=== PATIENT | female | born 1965 | race Caucasian/White ===

== ENCOUNTER → 2020-02-11 | Outpatient (CLI) | payer MEDICARE, MEDICAID ==
--- NOTE | 2020-02-11 16:22 | RADIOLOGY REPORT (SQ) ---
EXAM DESCRIPTION: CAROTID DOPPLER IMAGES COMPLETED DATE/TIME: 02/11/2020 4:00 pm REASON FOR STUDY: CAROTID STENOSIS I65.22 OCCLUSION AND STENOSIS OF LEFT CAROTID ARTERY COMPARISON: None. TECHNIQUE: Grayscale ultrasound, Doppler velocity and spectra, and color Doppler images acquired of the extra-cranial carotid and vertebral arteries. Images stored on PACS. LIMITATIONS: None. FINDINGS: RIGHT CAROTID CCA Velocities: Within normal limits. ICA Velocities Peak systolic 50 cm/s. End diastolic 21 cm/s. Proximal ICA/CCA peak systolic ratio 0.51. Spectra normal. No significant plaque, minimal intimal thickening. LEFT CAROTID CCA Velocities: Within normal limits. ICA Velocities Peak systolic 44 cm/s. End diastolic 13 cm/s. Proximal ICA/CCA peak systolic ratio 0.4. Spectra normal. No significant plaque, minimal intimal thickening. VERTEBRAL ARTERIES: Antegrade flow. Normal waveforms. SUBCLAVIAN ARTERIES: No finding. OTHER: No other significant finding. IMPRESSION: NO HEMODYNAMICALLY SIGNIFICANT STENOSIS. COMMENT: Quality ID #[id number]: Velocity criteria are extrapolated from the diameter data as defined by t he Society of Radiologists in Ultrasound Consensus Conference. Radiology 2003: 229; 340-346. TECHNICAL DOCUMENTATION: JOB ID: [id number] 2010 [employer]- All Rights Reserved Reading location - IP/workstation name: [email or web address]
== END ==
LOC: SP 07:54 → EDBD 08:00
PROVIDERS: ATTEND Specialist
DX: I65.22 Occlusion and stenosis of left carotid artery (principal)
CPT/HCPCS: 93880

== ENCOUNTER 2020-06-29 12:46 | Emergency (ER) | payer MEDICARE, MEDICAID ==
--- NOTE | 2020-06-29 14:31 | ER Document Report ---
ED Medical Screen (RME) - General Chief Complaint: Vomiting/Diarrhea Stated Complaint: DIARRHEA/VOMITING Primary Care Provider: ANA LAURA GODFREY MD [Primary Care Provider] - Follow up as needed - HPI Notes: 06/29/20 14:23 Rapid Medical Exam HPI: This is a 55-year-old female presents to the ER complaining of nausea vomiting diarrhea that began this morning. Patient has baseline intellectual disabilities and lives in a skilled nursing. History obtained from caregiver. Caregiver says no one in the skilled nursing and and the staff have Covid or viral symptoms. The patient has not been out of the skilled nursing in a month. She has no cough, congestion, fevers or chills. She has no prior abdominal surgeries. She was able to eat a few bites of cereal this morning but did vomit a small amount of nonbloody emesis about 30 minutes later. Caregiver says the patient has had to go to the bathroom for low volume loose stools 7 times since arriving to the ER 2 hours ago. Physical Exam: GENERAL: Well-appearing, well-nourished and in no acute distress. HEAD: Atraumatic, normocephalic. ENT: Moist mucous membranes. RESP: Respirations even and unlabored CV- Regular rate. NEURO: No focal neurological deficits. Moves all extremities spontaneously and on command. My involvement in this patients care was limited to a rapid initial assessment. A comprehensive ED assessment and evaluation of the patient, analysis of test results, treatment, and completion of the medical decision making process will be performed by other ER providers. 06/29/20 14:24 Physical Exam - Vital signs Vitals: Temp Pulse Resp BP Pulse Ox 97.6 F 74 18 111/71 99 06/29/20 13:23 06/29/20 13:23 06/29/20 13:23 06/29/20 13:23 06/29/20 13:23 Course - Vital Signs Vital signs: Temp Pulse Resp BP Pulse Ox 97.6 F 74 18 111/71 99 06/29/20 13:23 06/29/20 13:23 06/29/20 13:23 06/29/20 13:23 06/29/20 13:23 Doctor's Discharge - Discharge Referrals: ANA LAURA GODFREY MD [Primary Care Provider] - Follow up as needed
[2020-06-29 15:56] LABS: APPEARANCE,URINE CLEAR; BILIRUBIN,URINE NEGATIVE (NEGATIVE); COLOR,URINE STRAW; GLUCOSE, URINE NEGATIVE (NEGATIVE); KETONES,URINE NEGATIVE (NEGATIVE); LEUKOCYTE ESTERASE,URINE NEGATIVE (NEGATIVE); NITRITE,URINE NEGATIVE (NEGATIVE); PROTEIN,URINE NEGATIVE (NEGATIVE); URINE SPECIFIC GRAVITY 1.004; UROBILINOGEN,URINE NEGATIVE mg/dL (<2.0)
[2020-06-29 16:05] LABS: ABSOLUTE BASOPHILS # (AUTO) 0.1 10^3/uL (0.0-0.2); ABSOLUTE LYMPHOCYTES (AUTO) 1.4 10^3/uL (0.5-4.7); ABSOLUTE MONOCYTES (AUTO) 0.3 10^3/uL (0.1-1.4); ABSOLUTE NEUT (AUTO) 6.2 10^3/uL (1.7-8.2); BASOPHILS % (AUTO) 0.7 % (0-2); EOSINOPHILS % (AUTO) 0.3 % (0-6); HEMATOCRIT 45.1 % (36.0-47.0); HEMOGLOBIN 15.5 g/dL (12.0-15.5); MEAN CORPUSCULAR HEMOGLOBIN 33.7 pg (27.0-33.4); MEAN CORPUSCULAR HGB CONC 34.3 g/dL (32.0-36.0); MEAN CORPUSCULAR VOLUME 98 fl (80-97); MONOCYTES % (AUTO) 3.4 % (3-13); PLATELET COUNT 215 10^3/uL (150-450); RED BLOOD COUNT 4.59 10^6/uL (3.72-5.28); RED CELL DISTRIBUTION WIDTH 14.3 % (11.5-14.0); SEGMENTED NEUTROPHILS % (AUTO) 77.6 % (42-78); TOTAL CELLS COUNTED % (AUTO) 100 %
[2020-06-29 16:22] LABS: ALKALINE PHOSPHATASE 87 U/L (38-126); ANION GAP 6 (5-19); ASPARTATE AMINO TRANSFERASE 31 U/L (14-36); BILIRUBIN,DIRECT 0.2 mg/dL (0.0-0.4); BILIRUBIN,TOTAL 0.5 mg/dL (0.2-1.3); BLOOD UREA NITROGEN 15 mg/dL (7-20); CALCIUM 10.7 mg/dL (8.4-10.2); CARBON DIOXIDE 34 mmol/L (22-30); CHLORIDE 102 mmol/L (98-107); GLUCOSE 114 mg/dL (75-110); POTASSIUM 4.6 mmol/L (3.6-5.0); TOTAL PROTEIN 7.3 g/dL (6.3-8.2)
[2020-06-29 16:37] LABS: ALBUMIN 4.2 g/dL (3.5-5.0)
[2020-06-29] MEDS ORDERED: ONDANSETRON 4 MG TAB.RAPDIS PO ONE (18:44)
--- NOTE | 2020-06-29 18:55 | ER Document Report ---
ED General - General Chief Complaint: Vomiting/Diarrhea Stated Complaint: DIARRHEA/VOMITING Time Seen by Provider: 06/29/20 18:26 Primary Care Provider: ANA LAURA GODFREY MD [Primary Care Provider] - Follow up as needed - HPI Notes: Patient is a 55-year-old female brought in the emergency department for e valuation of vomiting and diarrhea. Caregiver at the longterm is primary historian. Evidently the patient had some diarrhea on since Monday but this resolved. She ate normally over the weekend. Today she had diminished appetite and 1 episode of nonbloody, nonbilious emesis. She said multiple episodes of diarrhea. She is not been on antibiotics recently. She is had no abnormal travel. She has had no Covid exposures, in fact has not left the facility in about a month. No fevers or chills. No reports of anosmia or pain. No coughing or shortness of breath. - Related Data Allergies/Adverse Reactions: No Known Allergies Allergy (Verified 06/29/20 18:49) Home Medications: List reviewed at bedside Past Medical History - Social History Smoking Status: Never Smoker Frequency of alcohol use: None Family History: Reviewed & Not Pertinent - Medical History Medical History: Other - Down Syndrome Review of Systems - Review of Systems Constitutional: No symptoms reported EENT: No symptoms reported Cardiovascular: No symptoms reported Respiratory: No symptoms reported Gastrointestinal: See HPI Genitourinary: No symptoms reported Musculoskeletal: No symptoms reported Skin: No symptoms reported Neurological/Psychological: No symptoms reported Physical Exam - Vital signs Vitals: Temp Pulse Resp BP Pulse Ox 97.6 F 74 18 111/71 99 06/29/20 13:23 06/29/20 13:23 06/29/20 13:23 06/29/20 13:23 06/29/20 13:23 - Notes Notes: This is a pleasant 55-year-old female who appears her stated age. She does not have her hearing aids in at this time, but she appears to understand me, follows directions and getting into the bed, sitting up, and taking deep breaths. Vital signs reviewed, please refer to chart. Head is normocephalic, atraumatic. Pupils equal round, reactive to light. Neck is supple without meningismus. Heart is regular rate and rhythm. Lungs are clear to auscultation bilaterally. Abdomen is soft, nontender, normoactive bowel sounds throughout. Extremities without cyanosis, clubbing. Posterior calves are nontender. Peripheral pulses are equal. Skin is warm and dry. Patient is awake, alert, no facial asymmetry noted. She moves all 4 extremities spontaneously. She is cooperative with examiner. Course - Re-evaluation Re-evalutation: 06/29/20 18:59 Patient presents emergency department for evaluation. She is had vomiting and diarrhea. Because of we are in the pandemic, I am inclined to test for COVID- 19. Her labs show no significant abnormalities. I will can give her some nausea medicine and a p.o. challenge. If she is able to tolerate this I will send her home with nausea medicine and she is to be treated as a PUI. Caregiver voices understanding. She is currently stable, we will continue to monitor. 06/29/20 20:13 Patient had no emesis here, tolerated p.o. Covid test is pending. We will send her home with Zofran and close follow-up. Return to the ED with worsening. - Vital Signs Vital signs: Temp Pulse Resp BP Pulse Ox 97.6 F 74 18 111/71 99 06/29/20 13:23 06/29/20 13:23 06/29/20 13:23 06/29/20 13:23 06/29/20 13:23 - Laboratory Results Result Diagrams: 06/29/20 15:36 06/29/20 15:36 Laboratory Results Interpreted: 06/29/20 06/29/20 15:36 15:36 MCV 98 H MCH 33.7 H RDW 14.3 H Carbon Dioxide 34 H Glucose 114 H Calcium 10.7 H Critical Laboratory Results Reviewed: No Critical Results - Radiology Results Critical Radiology Results Reviewed: No Critical Results Discharge - Discharge Clinical Impression: Nausea vomiting and diarrhea, Person under investigation for COVID-19 Condition: Stable Disposition: HOME, SELF-CARE Instructions: COVID-19 Guidance for Persons Under Investigation, Diarrhea, Nonspecific ([facility]), Vomiting ([facility]) Additional Instructions: Rest, stay well-hydrated. Zofran as needed for nausea. Small frequent sips of fluids. Start with clear fluids and advance to bland diet, then advance to normal diet as tolerated. Follow-up with primary care next week. Return to the emergency department with worsening or new concerning symptoms of any sort. Prescriptions: Ondansetron [Zofran Odt 4 mg Tablet] 1 - 2 tab PO Q4H PRN #15 tab.rapdis PRN Reason: For Nausea/Vomiting Referrals: ANA LAURA GODFREY MD [Primary Care Provider] - Follow up as needed
[2020-06-29 20:51] VITALS: BP 110/74
== END 2020-06-29 20:40 | disposition home or self-care (01) ==
LOC: ER 12:46
DX: R11.2 Nausea with vomiting, unspecified (principal); R19.7 Diarrhea, unspecified; Z20.828 Contact with and (suspected) exposure to other viral communicable diseases
CPT/HCPCS: 99283; 36415; 83690; 85025; 80053; 81001; U0003; A9270; C9803; 87635; S0119